=== PATIENT | female | born 1940 ===

== ENCOUNTER 2021-02-17 11:03 | Outpatient (CLI) | payer OTHER ==
[~2021-02-17 11:03] MED LIST: ASA81 MG; GLUCOPHAGE XR500 MG; INDUR; LIPITOR20 MG; LISINOPRIL40 MG; SINGULAIR10 MG; SYNTHROID88 MCG; VERAMYST10 GM; VERAPAMIL HCL120 M1
== END 2021-02-17 11:12 | disposition home or self-care (01) ==
LOC: RAD 11:03
PROVIDERS: ATTEND Ophthalmology
DX: H25.011 Cortical age-related cataract, right eye (principal); Z98.41 Cataract extraction status, right eye